=== PATIENT | female | born 1940 | race Two or more races ===

== ENCOUNTER 2020-01-20 08:19 | Outpatient (CLI) | payer OTHER ==
[~2020-01-20 08:19] MED LIST: ASA81 MG PO; AVAPRO300 MG PO; DOXAZOSIN MESYLA4 MG PO; HYDROCHLOROTHIA25 MG PO; LASIX40 MG PO; NABUMETONE500 MG PO; NORVASC10 MG PO; OXYBUTYNIN10 MG/BOTT PO; PERCOCET 5/3251 TAB PO; VITAMIN D400 UNI2 PO; ZAROXOLYN5 M1 PO
== END 2020-01-20 15:00 | disposition home or self-care (01) ==
LOC: LAB 08:19
DX: N81.11 Cystocele, midline (principal); D64.89 Other specified anemias; N39.0 Urinary tract infection, site not specified; I10 Essential (primary) hypertension

== ENCOUNTER → 2020-01-27 | Outpatient (CLI) | payer OTHER ==
[~2020-01-27] MED LIST changes: +BACTRIM DS TAB1 EACH PO; +OMEPRAZOLE-BIC1 EAC1 PO; +PERCOCET 5-3251 EACH PO; +RALOXIFENE HCL60 MG PO; +SIMVASTATIN20 MG PO
== END | disposition home or self-care (01) ==
LOC: ADM 01-26 08:15 → LAB 06:00 → ADM 02-01 08:15 → CIR.AMB 02-22 08:15 → EDSTATUS 02-22 08:15
DX: N81.11 Cystocele, midline (principal); Z01.810 Encounter for preprocedural cardiovascular examination; Z01.812 Encounter for preprocedural laboratory examination

== ENCOUNTER 2020-03-07 06:10 | Day surgery (SDC) | payer OTHER ==
[~2020-03-07 06:10] MED LIST changes: -BACTRIM DS TAB1 EACH PO; -PERCOCET 5-3251 EACH PO
[2020-03-07] MEDS ORDERED: PERCOCET 5-3251 EACH PO (11:24)
[2020-03-07] MEDS ORDERED: BACTRIM DS TAB1 EACH PO (11:24)
== END 2020-03-07 15:40 | disposition home or self-care (01) ==
LOC: CIR.AMB 06:10
DX: N81.11 Cystocele, midline (principal)

== ENCOUNTER 2023-04-15 07:31 | Outpatient (CLI) | payer OTHER ==
[~2023-04-15 07:31] MED LIST changes: +BACTRIM DS TAB1 EACH PO; +PERCOCET 5-3251 EACH PO
== END 2023-04-15 07:36 | disposition home or self-care (01) ==
LOC: NUCLEAR 07:31
PROVIDERS: ATTEND Internal Medicine
DX: I10 Essential (primary) hypertension (principal); R07.9 Chest pain, unspecified
CPT/HCPCS: 78452; 93017; A9500; J0153

== ENCOUNTER 2023-10-14 13:04 | Outpatient (CLI) | payer OTHER | END 2023-10-14 13:05 | disposition home or self-care (01) | LOC: NUCLEAR 13:04 | DX: M81.0 Age-related osteoporosis without current pathological fracture (principal) ==